=== PATIENT | male | born 1960 | race Caucasian/White ===

== ENCOUNTER 2024-10-11 10:19 | Outpatient (CLI) | payer BC | END 2024-10-11 10:20 | disposition home or self-care (01) | LOC: BICCT 10:19 | PROVIDERS: ATTEND Nurse Practitioner Family | DX: Z12.2 Encounter for screening for malignant neoplasm of respiratory organs (principal); F17.210 Nicotine dependence, cigarettes, uncomplicated; J43.9 Emphysema, unspecified; J40 Bronchitis, not specified as acute or chronic | CPT/HCPCS: 71271 ==